=== PATIENT | female | born 1940 | race Caucasian/White ===

== ENCOUNTER 2022-04-13 11:40 | Emergency (ER) | payer MEDICARE, OTHER ==
[~2022-04-13] VITALS: Ht 160 cm; Wt 90.0 kg
[2022-04-13] MEDS ORDERED: morphine 4 MG/ML inj SYRINge IV ONE (13:20)
[2022-04-13] MEDS ORDERED: ondansetron/PF 4mg/2ml inj IV ONE (13:20)
[2022-04-13 15:05] VITALS: BP 105/65
[2022-04-13] MEDS ORDERED: HYDR-3965 PO (15:44)
--- NOTE | 2022-04-13 16:03 | NUR ---
SHOULDER IMMOB APPLIED. POST SPLINT [facility] INTACT
--- NOTE | 2022-04-13 16:04 | NUR ---
IV DC'D PT BEING ANAHI DISCHARGED
[2022-04-13] MEDS ORDERED: ONDA4TAB12 PO (16:12)
== END 2022-04-13 16:05 | disposition home or self-care (01) ==
LOC: ER 11:40
DX: S42.352A Displaced comminuted fracture of shaft of humerus, left arm, initial encounter for closed fracture (principal); W18.39XA Other fall on same level, initial encounter; Y93.89 Activity, other specified; Y92.89 Other specified places as the place of occurrence of the external cause; Y99.8 Other external cause status; I10 Essential (primary) hypertension; Z88.6 Allergy status to analgesic agent; Z79.899 Other long term (current) drug therapy; Z88.8 Allergy status to other drugs, medicaments and biological substances
CPT/HCPCS: 73030; 96374; 96375; 99284; J2270; J2405; A4565